=== PATIENT | male | born 1955 | race Caucasian/White ===

== ENCOUNTER 2017-05-08 12:33 | Emergency (ER) | payer SELFPAY ==
--- NOTE | 2017-05-08 12:41 | EDPHY ---
H & P Time Seen by Provider: 05/08/17 12:41 HPI/ROS: CHIEF COMPLAINT: Witnessed seizure HISTORY OF PRESENT ILLNESS: The patient presents to the ED by paramedics after a witnessed seizure at work. The patient was observed to be vacuuming out a car when he had a tonic-clonic seizure. The patient has been postictal since the seizure. By report there is no history of seizure. The patient is currently postictal unable to provide much in the way of history. He denies any acute headache, numbness, weakness or prior seizure. He denies past medical history. He denies taking medications. He does report he is a daily drinker. He is uncertain whether he has been cutting back recently. REVIEW OF SYSTEMS: A comprehensive 10 point review of systems is otherwise negative aside from elements mentioned in the history of present illness. Source: Patient Exam Limitations: No limitations - Medical/Surgical History PMH: Past medical history: Denies - Social History Smoking Status: Current some day smoker Alcohol Use: Occasionally - Physical Exam Exam: General Appearance: Alert, postictal, slightly tremulous Eyes: Pupils equal and round no pallor or injection ENT, Mouth: Mucous membranes moist Respiratory: There are no retractions, lungs are clear to auscultation Cardiovascular: Regular rate and rhythm Gastrointestinal: Abdomen is soft and nontender, no masses, bowel sounds normal Neurological: 5/5 strength all 4 extremities, grossly normal cranial nerve exam , sensation intact to light touch Skin: Warm and dry, no rashes Musculoskeletal: Neck is supple nontender Extremities: symmetrical, full range of motion Constitutional: Initial Vital Signs Temperature (C) 37.0 C 05/08/17 12:46 Heart Rate 110 H 05/08/17 12:46 Respiratory Rate 16 05/08/17 12:46 Blood Pressure 148/99 H 05/08/17 12:46 O2 Sat (%) 97 05/08/17 12:46 O2 Delivery Mode Room Air Allergies/Adverse Reactions: Unable to Assess Allergy (Unverified 05/08/17 12:46) Home Medications: Medication Instructions Recorded Unobtainable 05/08/17 Medical Decision Making - Diagnostics Imaging Results: Imaging Impressions Head CT 05/08/17 12:48 Impression: 1. Area of focal encephalomalacia in the right frontal area may represent a seizure focus. 2. Postoperative changes are noted in the region of encephalomalacia. 3. Possible small vessel disease. Results called and discussed with Jevon Sneed M.D. on 05/08/2017 13:41. ED Course/Re-evaluation: The patient presents to the ED after witnessed tonic-clonic seizure at work. The patient arrives and was noted to be postictal. The patient was taken for noncontrast head CT scan as he reported no prior history of seizure disorder. 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 The patient is noted to have a decreased CO2 of 6 consistent with his history of a tonic-clonic seizure. I re-evaluated the patient at 2:30 p.m.. He has had no recurrent seizure. He is now alert and oriented x4. 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 He has no prior history of seizures. He denies significant change in his pattern of alcohol consumption. He denies any acute numbness or weakness. The patient has been informed of the diagnosis of first-time seizure and advised not participate in any dangerous activities until cleared to do so by Neurology. He will be discharged home with customary aftercare instructions and return precautions. Differential Diagnosis: Differential diagnosis considered includes seizure, status epilepticus, intracranial hemorrhage, intracranial mass, vasovagal episode - Data Points Laboratory Results: Laboratory Results 05/08/17 12:30 05/08/17 12:30 05/08/17 05/08/17 12:30 12:30 WBC 12.12 10^3/uL H 10^3/uL (3.80-9.50) RBC 4.44 10^6/uL 10^6/uL (4.40-6.38) Hgb 15.4 g/dL g/dL (13.7-17.5) Hct 47.2 % % (40.0-51.0) MCV 106.3 fL H fL (81.5-99.8) MCH 34.7 pg H pg (27.9-34.1) MCHC 32.6 g/dL g/dL (32.4-36.7) RDW 12.1 % % (11.5-15.2) Plt Count 305 10^3/uL 10^3/uL (150-400) MPV 10.1 fL fL (8.7-11.7) Neut % (Auto) 76.0 % H % (39.3-74.2) Lymph % (Auto) 17.6 % % (15.0-45.0) [place] % (Auto) 3.9 % L % (4.5-13.0) Eos % (Auto) 0.1 % L % (0.6-7.6) Baso % (Auto) 0.8 % % (0.3-1.7) Nucleat RBC Rel Count 0.0 % % (0.0-0.2) Absolute Neuts (auto) 9.22 10^3/uL H 10^3/uL (1.70-6.50) Absolute Lymphs (auto) 2.13 10^3/uL 10^3/uL (1.00-3.00) Absolute Monos (auto) 0.47 10^3/uL 10^3/uL (0.30-0.80) Absolute Eos (auto) 0.01 10^3/uL L 10^3/uL (0.03-0.40) Absolute Basos (auto) 0.10 10^3/uL 10^3/uL (0.02-0.10) Absolute Nucleated RBC 0.00 10^3/uL 10^3/uL (0-0.01) Immature Gran % 1.6 % H % (0.0-1.1) Immature Gran # 0.19 10^3/uL H 10^3/uL (0.00-0.10) Sodium 142 mEq/L mEq/L (134-144) Potassium 4.5 mEq/L mEq/L (3.5-5.2) Chloride 100 mEq/L mEq/L (97-110) Carbon Dioxide 6 mEq/l L* mEq/l (22-31) Anion Gap 36 mEq/L H mEq/L (8-16) BUN 15 mg/dL mg/dL (7-23) Creatinine 1.0 mg/dL mg/dL (0.7-1.3) Estimated GFR > 60 Glucose 170 mg/dL H mg/dL (70-100) Calcium 9.9 mg/dL mg/dL (8.5-10.4) Medications Given: Discontinued Medications Sodium Chloride (Ns) 1,000 mls @ 0 mls/hr IV ONCE ONE; Wide Open PRN Reason: Protocol Stop: 05/08/17 12:49 Last Admin: 05/08/17 13:01 Dose: 1,000 mls Departure - Departure Disposition: Home, Routine, Self-Care Clinical Impression: Seizure disorder Condition: Good Instructions: New-Onset Seizure in Adults (ED) Additional Instructions: 1. No driving, dangerous activities such as riding a ski lift, swimming in a pool or other behavior that could put you or someone else at risk in the event of a recurrent seizure. You will need to be cleared by a neurologist to resume these activities. 2. Please return to the ED for recurrent seizure, headache, numbness, weakness, altered mental status or other concerns. 3. Please follow up with neurologist you have been referred to this week to schedule a follow-up appointment. Referrals: Colton Brown DO [Doctor of Osteopathy] - As per Instructions
[2017-05-08] MEDS ORDERED: NS 1,000 ML IV ONE (12:48)
[2017-05-08 12:52] VITALS: RESP 16; TEMP 98.6
[2017-05-08 13:01] LABS: % IMMATURE GRANULYOCYTES 1.6 % (0.0-1.1); ABSOLUTE IMMATURE GRANULOCYTES 0.19 10^3/uL (0.00-0.10); ADD DIFF? NO; ADD MORPH? NO; ADD SCAN? NO; ATYPICAL LYMPHOCYTE FLAG 0 (0-99); FRAGMENT RBC FLAG 0 (0-99); HEMATOCRIT 47.2 % (40.0-51.0); HEMOGLOBIN 15.4 g/dL (13.7-17.5); LEFT SHIFT FLG 10 (0-99); LIPEMIA HEMOLYSIS FLAG 80 (0-99); MEAN CELL HEMOGLOBIN 34.7 pg (27.9-34.1); MEAN CELL HEMOGLOBIN CONCENTR. 32.6 g/dL (32.4-36.7); MEAN CELL VOLUME 106.3 fL (81.5-99.8); MEAN PLATELET VOLUME 10.1 fL (8.7-11.7); PLATELET CLUMPS FLAG 0 (0-99); PLATELET COUNT 305 10^3/uL (150-400); RED BLOOD CELL COUNT 4.44 10^6/uL (4.40-6.38); RED CELL DISTRIBUTION WIDTH 12.1 % (11.5-15.2)
[2017-05-08 13:23] LABS: ANION GAP 36 mEq/L (8-16); CALCIUM 9.9 mg/dL (8.5-10.4); CHLORIDE 100 mEq/L (97-110); GLOMERULAR FILTRATION RATE > 60; GLUCOSE 170 mg/dL (70-100); POTASSIUM 4.5 mEq/L (3.5-5.2); SODIUM 142 mEq/L (134-144)
[2017-05-08 13:34] LABS: CARBON DIOXIDE 6 mEq/l (22-31)
[2017-05-08 14:59] VITALS: BP 133/80; PULSE 89; O2SAT 97
== END 2017-05-08 14:59 | disposition home or self-care (01) ==
LOC: EDUNIT#
DX: G40.909 Epilepsy, unspecified, not intractable, without status epilepticus (principal); F17.200 Nicotine dependence, unspecified, uncomplicated; E86.9 Volume depletion, unspecified

== ENCOUNTER 2017-08-23 11:04 | Emergency (ER) | payer MEDICAID ==
--- NOTE | 2017-08-23 11:06 | EDPHY ---
HPI/HX/ROS/PE/MDM Narrative: CHIEF COMPLAINT: Seizure HPI: This patient is a 61 y/o male arriving via EMS following a witnessed tonic- clonic seizure. Four months ago, the patient had a grand mal seizure while at work. He was evaluated 05/08/17 in this emergency department. He did not follow up with neurology and was not prescribed antiepileptics. He took there months off of work to recover and returned last week. Today, he was found at work having tonic-clonic seizure activity and coworkers called for EMS. On EMS arrival and throughout transport, the patient remained in a post-ictal state, oriented to person only. BGL was 162. The patient does not remember what happened today. He has not had any other seizure activity since April. He is otherwise healthy and denies any past pertinent medical history. He has no pain or complaints currently. REVIEW OF SYSTEMS: Aside from elements discussed in the HPI, a comprehensive 10-point review of systems was reviewed and is negative. PMH: Prior seizure 05/08/17. SOCIAL HISTORY: Lives in [place]. Employed. PHYSICAL EXAM: General:Patient is alert, in no acute distress. ENT:Eyes are normal to inspection. ENT inspection normal. Neck: Normal inspection. Full range of motion. Respiratory:No respiratory distress. Breath sounds normal bilaterally. Cardiovascular: Regular rate and rhythm. Strong peripheral pulses. Normal cap refill. Abdomen:The abdomen is nontender to palpation. There are no peritoneal signs. There are normal bowel sounds. Back: Normal to inspection. No tenderness to palpation. Skin: Normal color. No rash. Warm and dry. Extremities: Normal appearance. Full range of motion. Neuro: Oriented x3. Normal motor function. Normal sensory function. ED Course: 61 y/o male presents following a witnessed tonic-clonic seizure this morning. Exam unremarkable. Patient has history of one prior grand mal seizure in April,, four months ago. Plan for EKG, labs including CBC, chemistries, troponin. EKG was ordered and interpreted by myself. Please see [facility] system for official reading. Sinus rhythm, rate 90. Labs largely unremarkable. Troponin negative. Plan to discharge home in good condition with referral to neurology. I stressed the importance of following up with neurology as soon as possible. Seizure precautions and return precautions discussed. The patient is comfortable with this plan. MDM: This patient presents with his second seizure in the last several months. He failed to follow-up with neurology after the previous visit and I have stressed with him the need to do so. Workup was performed to rule out other potential etiologies - there is no evidence for ACS, hyperkalemia, ARF or infectious process. Patient has already had recent CTH for this problem that was negative , so I do not think repeat imaging is indicated. Given patient's elevated MCV, I have some suspicion this may represent an alcohol withdrawal seizure, but patient is not currently showing signs of severe alcohol withdrawal. - Data Points Laboratory Results: Laboratory Results 08/23/17 11:05 08/23/17 11:05 08/23/17 08/23/17 11:05 11:05 WBC 6.78 10^3/uL 10^3/uL (3.80-9.50) RBC 4.43 10^6/uL 10^6/uL (4.40-6.38) Hgb 15.8 g/dL g/dL (13.7-17.5) Hct 47.5 % % (40.0-51.0) MCV 107.2 fL H fL (81.5-99.8) MCH 35.7 pg H pg (27.9-34.1) MCHC 33.3 g/dL g/dL (32.4-36.7) RDW 11.9 % % (11.5-15.2) Plt Count 316 10^3/uL 10^3/uL (150-400) MPV 10.4 fL fL (8.7-11.7) Neut % (Auto) 60.3 % % (39.3-74.2) Lymph % (Auto) 32.3 % % (15.0-45.0) [place] % (Auto) 5.5 % % (4.5-13.0) Eos % (Auto) 0.9 % % (0.6-7.6) Baso % (Auto) 0.7 % % (0.3-1.7) Nucleat RBC Rel Count 0.0 % % (0.0-0.2) Absolute Neuts (auto) 4.09 10^3/uL 10^3/uL (1.70-6.50) Absolute Lymphs (auto) 2.19 10^3/uL 10^3/uL (1.00-3.00) Absolute Monos (auto) 0.37 10^3/uL 10^3/uL (0.30-0.80) Absolute Eos (auto) 0.06 10^3/uL 10^3/uL (0.03-0.40) Absolute Basos (auto) 0.05 10^3/uL 10^3/uL (0.02-0.10) Absolute Nucleated RBC 0.00 10^3/uL 10^3/uL (0-0.01) Immature Gran % 0.3 % % (0.0-1.1) Immature Gran # 0.02 10^3/uL 10^3/uL (0.00-0.10) Sodium 144 mEq/L mEq/L (135-145) Potassium 4.4 mEq/L mEq/L (3.5-5.2) Chloride 101 mEq/L mEq/L (97-110) Carbon Dioxide 13 mEq/l L mEq/l (22-31) Anion Gap 30 mEq/L H mEq/L (8-16) BUN 12 mg/dL mg/dL (7-23) Creatinine 0.9 mg/dL mg/dL (0.7-1.3) Estimated GFR > 60 Glucose 162 mg/dL H mg/dL (70-100) Calcium 9.4 mg/dL mg/dL (8.5-10.4) Troponin I < 0.012 ng/mL ng/mL (0.000-0.034) Medications Given: Discontinued Medications Sodium Chloride (Ns) 1,000 mls @ 0 mls/hr IV EDNOW ONE; Wide Open PRN Reason: Protocol Stop: 08/23/17 11:43 Last Admin: 08/23/17 11:42 Dose: 1,000 mls General Initial Vital Signs: Initial Vital Signs Temperature (C) 36.7 C 08/23/17 11:13 Heart Rate 120 H 08/23/17 11:13 Respiratory Rate 16 08/23/17 11:13 Blood Pressure 150/96 H 08/23/17 11:13 O2 Sat (%) 93 08/23/17 11:13 O2 Delivery Mode Room Air Allergies/Adverse Reactions: No Known Drug Allergies Allergy (Verified 08/23/17 13:37) Home Medications: Medication Instructions Recorded Unobtainable 05/08/17 Departure - Departure Disposition: Home, Routine, Self-Care Clinical Impression: Seizure Condition: Good Instructions: Epilepsy (ED) Additional Instructions: YOU MUST FOLLOW-UP WITH A NEUROLOGIST within 1-2 weeks[address] not drive a motor vehicle or use heavy machinery until cleared by a neurologist. Return to the ED for fever, seizure, headache or other concerns. Referrals: Colton Brown DO [Doctor of Osteopathy] - As per Instructions Report Scribed for: Rai Dowd Report Scribed by: Rosi Magaña Date of Report: 08/23/17 Time of Report: 11:38 Physician Review and Approval Statement: Portions of this note were transcribed by an ED scribe. I personally performed the history, physical exam, and medical decision making; and confirm the accuracy of the information in the transcribed note.
[2017-08-23] MEDS ORDERED: NS 1,000 ML IV ONE (11:42)
[2017-08-23 11:46] LABS: PLATELET COUNT 316 10^3/uL (150-400)
--- NOTE | 2017-08-23 12:36 | CPEKG ---
Heart Rate: 90 RR Interval: 667 P-R Interval: 152 QRSD Interval: 88 QT Interval: 372 QTC Interval: 455 P [place]: 60 QRS [place]: -14 T Wave [place]: 39 EKG Severity - NORMAL ECG - EKG Impression: SINUS RHYTHM Electronically Signed By: Oziel Lucero 25-Aug-2017 12:49:52
[2017-08-23] MEDS ORDERED: chlordiazePOXIDE 25 MG CAP PO ONE (12:37)
[2017-08-23 13:35] VITALS: BP 150/91
== END 2017-08-23 13:34 | disposition home or self-care (01) ==
LOC: EDUNIT#
DX: G40.909 Epilepsy, unspecified, not intractable, without status epilepticus (principal); E86.9 Volume depletion, unspecified

== ENCOUNTER → 2018-07-23 | Outpatient (CLI) | payer MEDICAID ==
--- NOTE | 2018-07-23 18:43 | CPEEG ---
[f rep st] ELECTROENCEPHALOGRAM 4-HOUR VIDEO EEG. DATE OF STUDY: 07/23/2018 INTERPRETATION: This 4-hour video EEG recording contains a mild degree of focal slowing over the right frontal head region. 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 There were no potentially epileptogenic abnormalities present in the awake or sleep recordings. During the EEG monitoring session, the patient did not have any clinical events. REPORT: This 4-hour video EEG contains 10 Hz alpha activity to the posterior head regions. The primary feature of this study was mild, low amplitude, intermittent theta slowing over the right frontal head region which was most prominent during drowsiness and sleep. There was no abnormal epileptiform activation at rest, during photic stimulation or hyperventilation. The patient became drowsy and fell into sustained sleep during the study. There was no abnormal epileptiform activation during drowsiness, sleep, or during times of arousal. The patient did not have any clinical events during the video EEG monitoring session. /[id number]/MODL MTDD
== END ==
LOC: FCPNEURO 07:55
PROVIDERS: ATTEND Psychiatry & Neurology Neurology
DX: G40.909 Epilepsy, unspecified, not intractable, without status epilepticus (principal)